=== PATIENT | male | born 2005 | race Caucasian/White ===

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

== ENCOUNTER 2023-06-17 17:12 | Emergency (ER) | payer OTHER ==
[~2023-06-17] VITALS: Ht 185.4 cm; Wt 108.0 kg
[2023-06-17] VITALS (7 sets, daily range): BP systolic 119–140; BP diastolic 82–85
[~2023-06-17 17:12] MED LIST changes: +ADDERALL15 MG PO; +PERSERIS
[2023-06-17] MEDS ORDERED: AMOX/K CLAV875 M1 PO (18:42)
== END 2023-06-17 19:03 | disposition home or self-care (01) ==
LOC: ED 17:12
DX: S61.512A Laceration without foreign body of left wrist, initial encounter (principal); F31.9 Bipolar disorder, unspecified; F17.200 Nicotine dependence, unspecified, uncomplicated; W01.110A Fall on same level from slipping, tripping and stumbling with subsequent striking against sharp glass, initial encounter; Y92.009 Unspecified place in unspecified non-institutional (private) residence as the place of occurrence of the external cause

== ENCOUNTER 2023-06-22 13:54 | Emergency (ER) | payer OTHER ==
[~2023-06-22] VITALS: Ht 185.4 cm; Wt 111.0 kg
[~2023-06-22 13:54] MED LIST changes: +AMOX/K CLAV875 M1 PO
[2023-06-22 14:49] VITALS: BP 127/81
[2023-06-22] MEDS ORDERED: VIBRAMYCIN100 M2 PO ×2 (14:52→18:42)
[2023-06-22 15:00] VITALS: BP 142/83
[2023-06-22 15:15] VITALS: BP 142/86
[2023-06-22 15:30] VITALS: BP 123/75
== END 2023-06-22 15:45 | disposition home or self-care (01) ==
LOC: ED 13:54
DX: T81.33XA Disruption of traumatic injury wound repair, initial encounter (principal); Y83.8 Other surgical procedures as the cause of abnormal reaction of the patient, or of later complication, without mention of misadventure at the time of the procedure; F17.200 Nicotine dependence, unspecified, uncomplicated

== ENCOUNTER 2023-07-04 14:41 | Emergency (ER) | payer OTHER ==
[~2023-07-04] VITALS: Ht 185.4 cm; Wt 85.6 kg
[~2023-07-04 14:41] MED LIST changes: +VIBRAMYCIN100 M2 PO
[2023-07-04 15:06] VITALS: BP 139/74
[2023-07-04 15:15] VITALS: BP 122/70
[2023-07-04 15:30] VITALS: BP 116/71
[2023-07-04 15:45] VITALS: BP 118/74
[2023-07-04 16:00] VITALS: BP 126/63
[2023-07-04] MEDS ORDERED: KEFLEX500 MG PO (16:35)
[2023-07-04] MEDS ORDERED: GENTAMICIN0.1 % EX (16:35)
[2023-07-04 16:43] VITALS: BP 126/63
== END 2023-07-04 16:43 | disposition home or self-care (01) ==
LOC: ED 14:41
DX: L08.9 Local infection of the skin and subcutaneous tissue, unspecified (principal); S61.512A Laceration without foreign body of left wrist, initial encounter; T81.33XA Disruption of traumatic injury wound repair, initial encounter; F20.9 Schizophrenia, unspecified; F31.9 Bipolar disorder, unspecified; F17.200 Nicotine dependence, unspecified, uncomplicated; Y83.9 Surgical procedure, unspecified as the cause of abnormal reaction of the patient, or of later complication, without mention of misadventure at the time of the procedure; X58.XXXA Exposure to other specified factors, initial encounter; T36.96XA Underdosing of unspecified systemic antibiotic, initial encounter; Z91.128 Patient's intentional underdosing of medication regimen for other reason; Z91.81 History of falling